=== PATIENT | male | born 1965 | race Caucasian/White ===

== ENCOUNTER 2017-09-13 12:01 | Emergency (ER) | payer OTHER ==
[~2017-09-13] VITALS: Ht 193 cm; Wt 107.0 kg
[2017-09-13 13:50] LABS: HEMATOCRIT 42.5 % (39.0-50.0); HEMOGLOBIN 14.3 g/dl (14.0-18.0); IMMATURE GRANULOCYTES 0.7 % (0.0-1.0); MEAN CELL VOLUME 87.6 fL CALC (80.0-100.0); MEAN CORPUSCULAR HGB 29.5 pG CALC (26.0-32.0); MEAN CORPUSCULAR HGB CONC 33.6 g/L CALC (32.0-36.0); NEUT# 19.02 thou/uL (1.82-7.42); RED BLOOD COUNT 4.85 mill/uL (4.70-6.10)
[2017-09-13 14:16] LABS: INFLUENZA A NONE DETECTED (NONE DETECT); INFLUENZA B NONE DETECTED (NONE DETECT)
[2017-09-13 14:16] LABS: ALBUMIN 3.8 g/dL (3.2-5.0); ALKALINE PHOSPHATASE 112 u/l (38-126); ANION GAP 17 (6-22 (CALC)); BUN 15 mg/dL (9-20); BUN/CREATININE RATIO 13 (12-20 (CALC)); CALCIUM 9.5 mg/dL (8.4-10.2); CARBON DIOXIDE 28 mmol/l (22-30); CHLORIDE 99 mmol/l (95-108); CREATININE 1.1 mg/dL (0.7-1.3); GFR > 60 ML/MIN (>=60 (CALC)); GFR FOR AFR.AMER. > 60 ML/MIN (>=60 (CALC)); GLUCOSE 125 mg/dL (75-110); POTASSIUM 4.3 mmol/l (3.5-5.1); SGOT/AST 35 u/l (17-59); SGPT/ALT 49 u/l (21-72); SODIUM 140 mmol/l (137-146); TOTAL PROTEIN 6.8 g/dL (6.3-8.2)
[2017-09-13] MEDS ORDERED: PROVENTIL HFA IN (14:54)
[2017-09-13] MEDS ORDERED: ZITHROMAX250 MG PO (14:54)
[2017-09-13 15:38] VITALS: BP 121/73
[2017-09-13] MEDS ORDERED: LEVAQUIN750 MG PO (15:45)
== END 2017-09-13 15:38 | disposition home or self-care (01) | DRG 195 ==
LOC: ED 12:01
PROVIDERS: Emergency Medicine
DX: J18.9 Pneumonia, unspecified organism (principal); R05 Cough; R11.10 Vomiting, unspecified; R50.9 Fever, unspecified

== ENCOUNTER 2017-09-25 17:19 | Emergency (ER) | payer OTHER ==
[~2017-09-25] VITALS: Ht 193 cm; Wt 106.0 kg
[~2017-09-25 17:19] MED LIST: LEVAQUIN750 MG PO; PROVENTIL HFA IN; ZITHROMAX250 MG PO
[2017-09-25 19:08] LABS: INFLUENZA A NONE DETECTED (NONE DETECT); INFLUENZA B NONE DETECTED (NONE DETECT)
[2017-09-25] MEDS ORDERED: CEPHALEXIN500 MG PO (19:14)
[2017-09-25] MEDS ORDERED: ROBITUSSIN AC10 ML PO (19:14)
[2017-09-25 19:35] VITALS: BP 124/78
== END 2017-09-25 19:35 | disposition home or self-care (01) | DRG 153 ==
LOC: ED 17:19
PROVIDERS: Emergency Medicine
DX: J06.9 Acute upper respiratory infection, unspecified (principal)